=== PATIENT | female | born 1945 | race Caucasian/White ===

== ENCOUNTER → 2018-03-27 08:47 | Outpatient (CLI) | payer MEDICARE, SELFPAY ==
[2018-03-27 09:34] LABS: Basophils # 0.1 K/mm3 (0-0.2); Eosinophils # 0.4 K/mm3 (0.0-0.4); Eosinophils % 5.2 % (0.1-12.0); Hematocrit 49.3 % (37.0-47.0); Hemoglobin 15.2 g/dL (12.2-16.2); Lymphocytes # 2.9 K/mm3 (0.7-4.5); Lymphocytes % 33.8 K/mm3 (10-50); Mean Corpuscular HGB Conc 30.8 g/dL (31.8-35.4); Mean Corpuscular Hemoglobin 29.9 pg (27.0-31.2); Mean Platelet Volume 7.7 fl (7.4-10.4); Monocytes # 0.7 K/mm3 (0.1-1.0); Monocytes % 8.3 % (1.7-9.3); Neutrophils # 4.4 K/mm3 (1.8-7.8); Neutrophils % 51.7 % (37.0-80.0); Platelet Count 237 K/mm3 (142-424); Red Blood Count 5.09 M/mm3 (4.20-5.40); Red Cell Distribution Width 13.5 % (11.5-17.5); White Blood Count 8.5 K/mm3 (4.8-10.8)
[2018-03-27 10:32] LABS: Hemoglobin A1C 5.9 % (0.0-7.0)
[2018-03-27 10:41] LABS: Alanine Aminotransferase 29 U/L (12-78); Albumin Level 3.6 gm/dL (3.4-5.0); Alkaline Phosphatase 74 U/L (46-116); Anion Gap 11.6 mEq/L (5-15); Aspartate Amino Transferase 24 U/L (15-37); Bilirubin,Total 0.5 mg/dL (0.2-1.0); Blood Urea Nitrogen 29 mg/dL (7-18); Calcium 9.5 mg/dL (8.5-10.1); Carbon Dioxide 30 mmol/L (21.0-32.0); Chloride 103 mmol/L (98-107); Chol/HDL Ratio 2.6 (1-3.5); Cholesterol 172 mg/dL (140-200); Creatinine,Serum 1.14 mg/dL (0.55-1.02); Estimated Glomerular Filt Rate 47 ml/min (>60); GFR (African American) 57 ML/MIN (>60); Globulin 3.5 gm/dl (1.3-3.2); Glucose 114 mg/dL (74-106); HDL Cholesterol 67 mg/dL (29-89); LDL Cholesterol 85 mg/dL (0-130); Potassium 4.6 mmoL/L (3.5-5.1); Sodium 140 mmol/L (136-145); Thyroid Stimulating Hormone 1.42 uIU/ml (0.358-3.740); Total Protein,Serum 7.1 gm/dL (6.4-8.2); Triglycerides 100 mg/dL (30-200); VLDL Cholesterol 20 mg/dL (0-40)
== END ==
PROVIDERS: Visit Provider Nurse Practitioner Family
DX: K21.9 Gastro-esophageal reflux disease without esophagitis (principal); R73.9 Hyperglycemia, unspecified; I10 Essential (primary) hypertension
CPT/HCPCS: 36415; 80053; 80061; 83036; 84443; 85025

== ENCOUNTER → 2018-03-31 15:51 | Outpatient (CLI) | payer MEDICARE, SELFPAY ==
--- NOTE | 2018-03-31 15:57 | MM_ITS ---
. MM Dig screening mamm BI w/CAD CAD Screening ORDERING PHYSICIAN : Magaly Mariscal PATIENT AGE: 72 years GENDER: Female HISTORY. Screening mammogram. No new complaints. Previous benign lumpectomy right breast Family history. Noncontributory COMPARISON: Previous mammograms: March 2015, 2016. August 2010 INDICATION: TECHNIQUE: Standard CC and MLO images were obtained. R2 CAD reviewed. FINDINGS: Minimal residual fibroglandular elements bilaterally. . RIGHT BREAST:Right breast appears stable with no new areas of concern. Follow-up in one year LEFT BREAST:Small areas of minor at the lateral left breast is stable since 2014. It not of concern in can be followed. No significant new findings. No dominant mass nor suspicious calcifications of concern IMPRESSION: . Stable bilateral mammogram. Follow-up in one year recommended BI-RADS Category: 2 Benign Finding(s) RECOMMENDED FOLLOW-UP: 1YR - 1 YEAR FOLLOW-UP (A letter has been sent to the patient regarding results of the study.) In
== END ==
PROVIDERS: PCP Internal Medicine Adolescent Medicine; Visit Provider Nurse Practitioner Family
DX: Z12.31 Encounter for screening mammogram for malignant neoplasm of breast (principal)
CPT/HCPCS: 77067

== ENCOUNTER → 2018-09-25 09:41 | Outpatient (CLI) | payer MEDICARE, SELFPAY ==
[2018-09-25 10:19] LABS: Basophils # 0.1 K/mm3 (0-0.2); Eosinophils # 0.2 K/mm3 (0.0-0.4); Eosinophils % 2.4 % (0.1-12.0); Hemoglobin 15.4 g/dL (12.2-16.2); Lymphocytes % 33.2 % (10-50); Mean Corpuscular Hemoglobin 30.4 pg (27.0-31.2); Mean Corpuscular Volume 94.9 fl (81-99); Mean Platelet Volume 7.4 fl (7.4-10.4); Monocytes # 0.6 K/mm3 (0.1-1.0); Neutrophils # 5.1 K/mm3 (1.8-7.8); Neutrophils % 56.4 % (37.0-80.0); Platelet Count 276 K/mm3 (142-424); Red Blood Count 5.06 M/mm3 (4.20-5.40); Red Cell Distribution Width 14.1 % (11.5-17.5)
[2018-09-25 11:31] LABS: Alanine Aminotransferase 30 U/L (12-78); Albumin Level 3.8 gm/dL (3.4-5.0); Alkaline Phosphatase 86 U/L (46-116); Anion Gap 16.7 mEq/L (5-15); Aspartate Amino Transferase 22 U/L (15-37); Bilirubin,Total 0.7 mg/dL (0.2-1.0); Blood Urea Nitrogen 25 mg/dL (7-18); Calcium 9.4 mg/dL (8.5-10.1); Carbon Dioxide 24 mmol/L (21.0-32.0); Chloride 103 mmol/L (98-107); Chol/HDL Ratio 2.5 (1-3.5); Cholesterol 177 mg/dL (140-200); Creatinine,Serum 1.14 mg/dL (0.55-1.02); Estimated Glomerular Filt Rate 47 ml/min (>60); GFR (African American) 57 ML/MIN (>60); Globulin 3.8 gm/dl (1.3-3.2); Glucose 129 mg/dL (74-106); HDL Cholesterol 72 mg/dL (29-89); LDL Cholesterol 79 mg/dL (0-130); Potassium 4.7 mmoL/L (3.5-5.1); Sodium 139 mmol/L (136-145); Thyroid Stimulating Hormone 2.27 uIU/ml (0.358-3.740); Total Protein,Serum 7.6 gm/dL (6.4-8.2); Triglycerides 132 mg/dL (30-200); Uric Acid 5.4 mg/dL (2.6-7.2); VLDL Cholesterol 26 mg/dL (0-40)
== END ==
PROVIDERS: Visit Provider Nurse Practitioner Family
DX: E03.9 Hypothyroidism, unspecified (principal); I48.1 Persistent atrial fibrillation; R73.9 Hyperglycemia, unspecified; I10 Essential (primary) hypertension; M10.9 Gout, unspecified
CPT/HCPCS: 36415; 80053; 80061; 83036; 84443; 84550; 85025

== ENCOUNTER → 2018-09-26 09:33 | Outpatient (CLI) | payer MEDICARE, OTHER, SELFPAY ==
--- NOTE | 2018-09-26 | CA_ITS ---
PROCEDURE: 2-D M-mode and color Doppler study INDICATIONS FOR THE TEST: Chest pain COPD Heart MurmurX Tobacco Smoking Palpitations Fatigue Syncope Edema HypertensionXDiabetes Mellitus Rheumatic Fever SOB KENT ObesityXHyperlipidemia Family History HD Additional History AF NEW ONSET PATIENT INFORMATION HEIGHT: 66 WEIGHT:293 GENDER: Female B/P:160/90 2-D/M-MODE INTERPRETATION: 2-D MEASUREMENTS OBSERVED VALUES IN CMS Right Ventricular Dimension (RVDd) .8 Interventricular Septum (Thickness)(IVsd) 1.1 Left Ventricular Internal Dimensions(LVIDd) 5.8 Left Ventricular Posterior Wall (Thickness)(LVPWd) 1.2 Aortic Root 3.6 Aortic Cusp Separation 1.6 Left Atrial Dimensions (LAD) 3.9 2D 1. Technically difficult study because of the patient's factor and poor acoustic windows, endocardial surfaces are very poorly visualized. Repeat study with Definity contrast is recommended. 2. The left atrium is mildly enlarged, left ventricle is normal size, probably preserved left ventricular systolic function, repeat study with definitely contrast is recommended. 3. The right atrium and right moderately enlarged, contractility of the right ventricle appears to be normal. 4. The aortic valve is minimally thickened and fibrosed. 5. The mitral and tricuspid valvular grossly normal. 6. No significant pericardial effusion noted. 7. The pulmonic valve is poorly visualized. DOPPLER INTERROGATION: Doppler interrogation of the aortic, mitral and tricuspid valvular presence of mild mitral and tricuspid regurgitation, tricuspid regurgitation jet velocity is inadequate for calculation of the right ventricular systolic pressure, diastolic parameters are inconclusive. CONCLUSION: 1. Technically very difficult study because of the patient's factor and poor acoustic windows, endocardial surfaces are very poorly visualized. Repeat study with Definity contrast is recommended. 2. The left atrium is mildly enlarged, left ventricle is normal size, probably preserved left ventricular systolic function. 3. Moderately enlarged right ventricle with normal contractility. 4. Mild mitral and tricuspid regurgitation 5. No significant pericardial effusion noted.
== END ==
PROVIDERS: PCP Internal Medicine Adolescent Medicine; Visit Provider Nurse Practitioner Family
DX: I49.9 Cardiac arrhythmia, unspecified; I48.0 Paroxysmal atrial fibrillation
CPT/HCPCS: 93306

== ENCOUNTER → 2018-10-03 12:47 | Outpatient (CLI) | payer MEDICARE, OTHER, SELFPAY ==
[2018-10-03 14:39] LABS: Anion Gap 14.4 mEq/L (5-15); Blood Urea Nitrogen 22 mg/dL (7-18); Calcium 9.8 mg/dL (8.5-10.1); Carbon Dioxide 27 mmol/L (21.0-32.0); Chloride 101 mmol/L (98-107); Creatinine,Serum 1.08 mg/dL (0.55-1.02); Estimated Glomerular Filt Rate 50 ml/min (>60); GFR (African American) 60 ML/MIN (>60); Glucose 102 mg/dL (74-106); Potassium 4.4 mmoL/L (3.5-5.1); Sodium 138 mmol/L (136-145)
== END ==
PROVIDERS: Physician Assistant; PCP Internal Medicine Adolescent Medicine; Visit Provider Internal Medicine Cardiovascular Disease
DX: I10 Essential (primary) hypertension (principal); R06.09 Other forms of dyspnea
CPT/HCPCS: 36415; 80048; 83880

== ENCOUNTER → 2018-10-09 06:20 | Outpatient (CLI) | payer MEDICARE, OTHER, SELFPAY ==
--- NOTE | 2018-10-09 06:22 | NM_ITS ---
CARDIOLITE SPECT MYOCARDIAL PERFUSION SCAN, REST AND STRESS: EXERCISE STRESS [facility] REVIEW QGS EF AND WALL MOTION EVALUATION: QPS - PERFUSION EVALUATION HISTORY: SOB, Fatigue, Abnormal EKG, HTN DOSE: 10.29 mCi technetium 99m mibi intravenously at rest followed by 30.4 mCi technetium 99m mibi following the intravenous ministration of 0.4 mg of Lexiscan. Resting blood pressure is 120/82. Stress blood pressure 130/80. FINDINGS: Ejection fraction is calculated to be 51%. Stress images reveal decreased activity throughout the anterior wall with no change during rest images. Gated images calculated ejection fraction of 51% the anterior apical wall is abnormal with significant hypokinesis IMPRESSION: Clinical correlation is advised. The scintigraphic evidence suggests breast attenuation however the gated images clearly demonstrate regional wall motion abnormality which is not explained by the breast attenuation. This test is most consistent with significant LAD disease. Reduced ejection fraction with wall motion abnormality. This should be characterized is a high risk abnormal stress test based on anterior wall involvement complimentary by regional wall motion abnormality
--- NOTE | 2018-10-09 07:18 | HMH.ITSHM ---
Current Home Medications as stated by this patient Jessica Mcdermott or billing representative. []RIVAROXABAN POTASSIUM MELOXICAM LISINOPRIL ALLOPURINOL LEVOTHYROXINE FUROSEMIDE FAMOTIDINE BISOPROLOL ASA
== END ==
PROVIDERS: PCP Internal Medicine Adolescent Medicine; Visit Provider Internal Medicine Cardiovascular Disease
DX: E03.9 Hypothyroidism, unspecified (principal); E66.01 Morbid (severe) obesity due to excess calories; G47.33 Obstructive sleep apnea (adult) (pediatric); I10 Essential (primary) hypertension; I48.91 Unspecified atrial fibrillation; R06.09 Other forms of dyspnea; Z68.42 Body mass index [BMI] 45.0-49.9, adult; Z87.898 Personal history of other specified conditions
CPT/HCPCS: 78452; 93017; A9502; J2785

== ENCOUNTER → 2018-10-23 10:10 | Outpatient (CLI) | payer MEDICARE, OTHER, SELFPAY ==
[2018-10-23 11:15] LABS: Anion Gap 14.1 mEq/L (5-15); Blood Urea Nitrogen 29 mg/dL (7-18); Calcium 9.6 mg/dL (8.5-10.1); Carbon Dioxide 28 mmol/L (21.0-32.0); Chloride 101 mmol/L (98-107); Creatinine,Serum 1.58 mg/dL (0.55-1.02); Estimated Glomerular Filt Rate 32 ml/min (>60); GFR (African American) 39 ML/MIN (>60); Glucose 127 mg/dL (74-106); Sodium 138 mmol/L (136-145)
[2018-10-23 11:24] LABS: Potassium 5.1 mmoL/L (3.5-5.1)
== END ==
PROVIDERS: PCP Internal Medicine Adolescent Medicine; Visit Provider Nurse Practitioner Family
DX: I50.82 Biventricular heart failure; I27.20 Pulmonary hypertension, unspecified
CPT/HCPCS: 36415; 80048

== ENCOUNTER → 2018-10-30 09:59 | Outpatient (CLI) | payer MEDICARE, OTHER, SELFPAY ==
[2018-10-30 11:11] LABS: Anion Gap 17.7 mEq/L (5-15); Blood Urea Nitrogen 47 mg/dL (7-18); Calcium 9.6 mg/dL (8.5-10.1); Carbon Dioxide 26 mmol/L (21.0-32.0); Chloride 98 mmol/L (98-107); Creatinine,Serum 2.43 mg/dL (0.55-1.02); Estimated Glomerular Filt Rate 20 ml/min (>60); GFR (African American) 24 ML/MIN (>60); Glucose 134 mg/dL (74-106); Potassium 4.7 mmoL/L (3.5-5.1); Sodium 137 mmol/L (136-145)
== END ==
PROVIDERS: Visit Provider Nurse Practitioner Family
DX: I27.20 Pulmonary hypertension, unspecified (principal); I50.82 Biventricular heart failure; N18.9 Chronic kidney disease, unspecified
CPT/HCPCS: 36415; 80048

== ENCOUNTER → 2018-11-06 11:35 | Outpatient (CLI) | payer MEDICARE, OTHER, SELFPAY ==
[2018-11-06 15:05] LABS: Anion Gap 16.8 mEq/L (5-15); Blood Urea Nitrogen 29 mg/dL (7-18); Calcium 9.5 mg/dL (8.5-10.1); Carbon Dioxide 23 mmol/L (21.0-32.0); Chloride 103 mmol/L (98-107); Creatinine,Serum 1.44 mg/dL (0.55-1.02); Estimated Glomerular Filt Rate 36 ml/min (>60); GFR (African American) 43 ML/MIN (>60); Glucose 129 mg/dL (74-106); Potassium 4.8 mmoL/L (3.5-5.1); Sodium 138 mmol/L (136-145)
== END ==
PROVIDERS: Visit Provider Nurse Practitioner Family
DX: N18.1 Chronic kidney disease, stage 1 (principal); I27.20 Pulmonary hypertension, unspecified; R06.02 Shortness of breath
CPT/HCPCS: 36415; 80048

== ENCOUNTER → 2018-11-14 12:09 | Outpatient (CLI) | payer MEDICARE, OTHER, SELFPAY ==
[2018-11-14 14:41] LABS: Anion Gap 15.7 mEq/L (5-15); Blood Urea Nitrogen 23 mg/dL (7-18); Calcium 9.6 mg/dL (8.5-10.1); Carbon Dioxide 24 mmol/L (21.0-32.0); Chloride 104 mmol/L (98-107); Creatinine,Serum 1.08 mg/dL (0.55-1.02); Estimated Glomerular Filt Rate 50 ml/min (>60); GFR (African American) 60 ML/MIN (>60); Glucose 108 mg/dL (74-106); Potassium 4.7 mmoL/L (3.5-5.1); Sodium 139 mmol/L (136-145)
== END ==
PROVIDERS: Urology; Visit Provider Internal Medicine
DX: I27.20 Pulmonary hypertension, unspecified (principal); N18.1 Chronic kidney disease, stage 1; R06.02 Shortness of breath
CPT/HCPCS: 36415; 80048

== ENCOUNTER → 2018-11-28 11:50 | Outpatient (CLI) | payer MEDICARE, OTHER, SELFPAY ==
[2018-11-28 12:58] LABS: Anion Gap 15.2 mEq/L (5-15); Blood Urea Nitrogen 46 mg/dL (7-18); Carbon Dioxide 27 mmol/L (21.0-32.0); Chloride 100 mmol/L (98-107); Creatinine,Serum 1.93 mg/dL (0.55-1.02); Estimated Glomerular Filt Rate 26 ml/min (>60); GFR (African American) 31 ML/MIN (>60); Glucose 121 mg/dL (74-106); Potassium 5.2 mmoL/L (3.5-5.1); Sodium 137 mmol/L (136-145)
== END ==
PROVIDERS: Urology; Visit Provider Internal Medicine
DX: I51.9 Heart disease, unspecified; R06.02 Shortness of breath; R60.9 Edema, unspecified
CPT/HCPCS: 36415; 80048

== ENCOUNTER → 2018-12-06 12:06 | Outpatient (CLI) | payer MEDICARE, OTHER, SELFPAY ==
[2018-12-06 13:57] LABS: Anion Gap 13.9 mEq/L (5-15); Blood Urea Nitrogen 41 mg/dL (7-18); Calcium 9.6 mg/dL (8.5-10.1); Carbon Dioxide 28 mmol/L (21.0-32.0); Chloride 101 mmol/L (98-107); Creatinine,Serum 1.98 mg/dL (0.55-1.02); Estimated Glomerular Filt Rate 25 ml/min (>60); GFR (African American) 30 ML/MIN (>60); Glucose 134 mg/dL (74-106); Potassium 4.9 mmoL/L (3.5-5.1); Sodium 138 mmol/L (136-145)
== END ==
PROVIDERS: Visit Provider Urology
DX: I51.9 Heart disease, unspecified (principal); R06.02 Shortness of breath; R60.9 Edema, unspecified
CPT/HCPCS: 36415; 80048

== ENCOUNTER → 2018-12-13 14:36 | Outpatient (CLI) | payer MEDICARE, OTHER, SELFPAY ==
[2018-12-13 15:35] LABS: Anion Gap 12.5 mEq/L (5-15); Blood Urea Nitrogen 34 mg/dL (7-18); Calcium 9.3 mg/dL (8.5-10.1); Carbon Dioxide 27 mmol/L (21.0-32.0); Chloride 102 mmol/L (98-107); Estimated Glomerular Filt Rate 23 ml/min (>60); GFR (African American) 28 ML/MIN (>60); Glucose 109 mg/dL (74-106); Potassium 4.5 mmoL/L (3.5-5.1); Sodium 137 mmol/L (136-145)
== END ==
PROVIDERS: Visit Provider Internal Medicine
DX: I27.20 Pulmonary hypertension, unspecified (principal); I48.91 Unspecified atrial fibrillation; I51.89 Other ill-defined heart diseases
CPT/HCPCS: 36415; 80048

== ENCOUNTER → 2018-12-22 12:52 | Outpatient (CLI) | payer MEDICARE, OTHER, SELFPAY ==
[2018-12-22 15:01] LABS: Anion Gap 16.4 mEq/L (5-15); Blood Urea Nitrogen 36 mg/dL (7-18); Calcium 9.5 mg/dL (8.5-10.1); Carbon Dioxide 25 mmol/L (21.0-32.0); Chloride 102 mmol/L (98-107); Creatinine,Serum 1.59 mg/dL (0.55-1.02); Estimated Glomerular Filt Rate 32 ml/min (>60); GFR (African American) 39 ML/MIN (>60); Glucose 158 mg/dL (74-106); Potassium 5.4 mmoL/L (3.5-5.1); Sodium 138 mmol/L (136-145)
== END ==
PROVIDERS: Visit Provider Physician Assistant
DX: I27.20 Pulmonary hypertension, unspecified (principal); I48.91 Unspecified atrial fibrillation; I51.89 Other ill-defined heart diseases
CPT/HCPCS: 36415; 80048

== ENCOUNTER → 2019-01-01 12:31 | Outpatient (CLI) | payer MEDICARE, OTHER, SELFPAY ==
[2019-01-01 13:48] LABS: Anion Gap 16.9 mEq/L (5-15); Blood Urea Nitrogen 28 mg/dL (7-18); Calcium 9.7 mg/dL (8.5-10.1); Carbon Dioxide 25 mmol/L (21.0-32.0); Chloride 101 mmol/L (98-107); Creatinine,Serum 1.62 mg/dL (0.55-1.02); Estimated Glomerular Filt Rate 31 ml/min (>60); GFR (African American) 38 ML/MIN (>60); Glucose 117 mg/dL (74-106); Potassium 4.9 mmoL/L (3.5-5.1); Sodium 138 mmol/L (136-145)
== END ==
PROVIDERS: Visit Provider Internal Medicine
DX: I10 Essential (primary) hypertension (principal); I20.9 Angina pectoris, unspecified; I48.91 Unspecified atrial fibrillation; R53.83 Other fatigue
CPT/HCPCS: 36415; 80048

== ENCOUNTER → 2019-03-23 13:36 | Outpatient (CLI) | payer MEDICARE, OTHER, SELFPAY ==
--- NOTE | 2019-03-23 13:39 | US_ITS ---
US Kidney CLINICAL INDICATION: ITS.REASON: URINARY HESITATION, ELEVATED SERUM CREATININE ORDERING PHYSICIAN: Magaly Mariscal APRN PATIENT AGE: 73 years Comparison: None FINDINGS: The kidneys are of normal size shape and position. No hydronephrosis. There is mild bilateral renal cortical thinning. No renal mass or perinephric fluid collection. IMPRESSION: Mild bilateral renal cortical thinning otherwise negative bilateral renal ultrasound
--- NOTE | 2019-03-23 14:35 | CA_ITS ---
PROCEDURE: 2-D M-mode and color Doppler study INDICATIONS FOR THE TEST: Chest pain COPD Heart Murmur+ Tobacco Smoking Palpitations Fatigue+ Syncope Edema+ Hypertension+Diabetes Mellitus Rheumatic Fever SOB+KENT Obesity+Hyperlipidemia Family History HD Additional History DD, GERD, CATH PATIENT INFORMATION HEIGHT: 66 WEIGHT:272 GENDER: Female B/P:109/51 2-D/M-MODE INTERPRETATION: 2-D MEASUREMENTS OBSERVED VALUES IN CMS Right Ventricular Dimension (RVDd) 2.8 Interventricular Septum (Thickness)(IVsd) 1.5 Left Ventricular Internal Dimensions(LVIDd) 5.0 Left Ventricular Posterior Wall (Thickness)(LVPWd) 0.8 Aortic Root 3.5 Aortic Cusp Separation 2.0 Left Atrial Dimensions (LAD) 4.6 2D 1. Left atrium is moderately enlarged, left ventricle is normal size, mild concentric left ventricular hypertrophy, visually estimated ejection fraction 55% with no regional wall motion abnormality. 2. The right atrium and right ventricle are mildly enlarged with normal contractility. 3. The aortic valve is thickened and calcified leaflet continue to display mobility. 4. The mitral and tricuspid valve leaflets are minimally thickened. 5. The pulmonic valve is poorly visualized. 6. No significant pericardial effusion noted. DOPPLER INTERROGATION: Doppler interrogation of the aortic, mitral and tricuspid valvular presence of trace aortic, mild mitral and tricuspid regurgitation, tricuspid regurgitation jet velocity is inadequate for calculation of the right ventricular systolic pressure, diastolic parameters are inconclusive. CONCLUSION: 1. Moderately enlarged left atrium, normal left ventricular size, mild concentric left ventricular hypertrophy, visually estimated ejection fraction of 55% with no regional wall motion abnormality, diastolic parameters are inconclusive. 2. Mildly enlarged right ventricle with normal contractility. 3. Trace aortic, mild mitral and tricuspid regurgitation 4. No significant pericardial effusion noted.
== END ==
PROVIDERS: PCP Nurse Practitioner Family; Visit Provider Nurse Practitioner Family
DX: R06.09 Other forms of dyspnea (principal); R39.11 Hesitancy of micturition
CPT/HCPCS: 76770; 93306

== ENCOUNTER → 2019-06-28 14:51 | Outpatient (POV) | payer MEDICARE, OTHER, SELFPAY | PROVIDERS: Visit Provider Internal Medicine Nephrology | DX: Z00.00 Encounter for general adult medical examination without abnormal findings (principal) ==

== ENCOUNTER → 2019-07-16 15:00 | Outpatient (CLI) | payer MEDICARE, OTHER, SELFPAY ==
--- NOTE | 2019-07-16 15:05 | XR_ITS ---
PROCEDURE: XR FOOT LT MIN 3V CLINICAL INDICATION: GOUTY ARTHRITIS, BILAT FOOT PAIN COMPARISON: No exams were available for comparison FINDINGS: No fracture or dislocation. No lytic or blastic change. There is normal mineralization. Mild degenerative changes in the midfoot at the navicular cuneiform and metatarsal tarsal junction posteriorly. Osteoarthritic changes are present at the ankle as well. Other findings:No bony erosive process. No soft tissue calcification. IMPRESSION: Mild degenerative changes of the foot Dictated by: Ricci Bess MD 07/16/2019 16:38 Electronically signed by Ricci Bess MD in [place] 07/16/2019 16:40
--- NOTE | 2019-07-16 15:05 | XR_ITS ---
PROCEDURE: XR FOOT RT MIN 3V CLINICAL INDICATION: GOUTY ARTHRITIS, BILAT FOOT PAIN COMPARISON: No exams were available for comparison FINDINGS: No fracture or dislocation. No lytic or blastic change. There is normal mineralization. There are mild osteoarthritic changes at the calcaneocuboid region and the navicular cuneiform junction Other findings:No soft tissue calcifications evident no gouty tophi parent IMPRESSION: Mild osteoarthritis Dictated by: Ricci Bess MD 07/16/2019 16:39 Electronically signed by Ricci Bess MD in [place] 07/16/2019 16:39
== END ==
PROVIDERS: PCP Nurse Practitioner Family; Visit Provider Nurse Practitioner Family
DX: M10.9 Gout, unspecified (principal); M79.672 Pain in left foot; M79.671 Pain in right foot
CPT/HCPCS: 73630

== ENCOUNTER → 2020-11-25 11:15 | Outpatient (CLI) | payer MEDICARE, OTHER, SELFPAY ==
--- NOTE | 2020-11-25 11:20 | XR_ITS ---
PROCEDURE: XR CHEST 2V CLINICAL HISTORY: dyspnea/recent covid-19 Oct COMPARISON: CR CXR1 CHEST-PORTABLE from 04/02/2016 FINDINGS: There is mild prominence of the cardiomediastinal silhouette. Subtle patchy ground-glass areas of attenuation noted in the right upper and right lower lobe and left lung base suspicious for patchy infiltrate seen with Covid19. Degenerative changes thoracic spine. IMPRESSION: Suspect mild bilateral pneumonia Dictated by: Ricci Bess MD 11/25/2020 13:05 Ricci Bess MD in [place] 11/25/2020 13:05
== END ==
PROVIDERS: PCP Internal Medicine Adolescent Medicine; Visit Provider Internal Medicine
DX: I10 Essential (primary) hypertension (principal); I25.10 Atherosclerotic heart disease of native coronary artery without angina pectoris; I27.20 Pulmonary hypertension, unspecified; R06.02 Shortness of breath; R09.89 Other specified symptoms and signs involving the circulatory and respiratory systems; U07.1 COVID-19; I48.19 Other persistent atrial fibrillation
CPT/HCPCS: 71046

== ENCOUNTER → 2021-06-01 09:53 | Outpatient (CLI) | payer MEDICARE, SELFPAY ==
--- NOTE | 2021-06-01 09:55 | CA_ITS ---
APPROVED REPORT EXAM: Comprehensive 2D, Doppler, and color-flow Echocardiogram Sports Director: Grisel Zhou RVT Ht: 5 ft 6 in Wt: 259lbs BSA: 2.23 BP: 147/89 mmHg Indications: SOA,CAD,DD,A-FIB,GERD,OBESITY,HTN,EDEMA 2D Dimensions LVOT 2.76 cm (M/F) 1.5-2.5 LA Volume 85.90 mL LA Volume Index 38.52 mL/m2 (M/F) 16-34 M-Mode Dimensions RVDd 1.92 cm (0.9-2.6) LA Diam 4.11 cm (1.9-4.0) LVDd 5.40 cm (3.5-5.7) Ao Diam 3.07 cm (2.0-3.7) LVDs 3.72 cm (3.5-5.7) IVSd 0.88 cm (0.6-1.1) PWd 0.60 cm (0.6-1.1) EF (Teich) 58.30% FS 31.10% EDV (Teich) 141.30 mL TAPSE 1.15 (<1.7) ESV (Teich) 58.90 mL Aortic Valve AI PHT 1157.00 ms AO Peak GR. 4.00 mmHg Pulmonary Valve PV Peak Velocity 51.00 (50-150 cm/s) Tricuspid Valve TR P. Velocity 219.00 cm/s RAP Estimate 10.00 mmHg RVSP 29.30 mmHg Left Ventricle Left atrium is mildly enlarged, left ventricle is normal size, mild concentric left ventricular hypertrophy, visually estimated ejection fraction 55% with no regional wall motion abnormality, diastolic parameters are inconclusive. Right Ventricle Right atrium and right ventricle mildly enlarged with normal contractility. Aortic Valve Aortic valve is minimally thickened and fibrosed, there is no aortic stenosis, there is mild aortic insufficiency. Mitral Valve Mitral valve grossly normal, there is mild mitral regurgitation. Tricuspid Valve Tricuspid valve grossly normal, there is mild tricuspid regurgitation, tricuspid regurgitation jet velocity is inadequate for calculation of the right ventricular systolic pressure. Pulmonic Valve Pulmonic valve is poorly visualized. Great Vessels Aortic root is normal size. Pericardium No significant pericardial effusion noted. Conclusion 1. Biatrial enlargement, normal left ventricular size, mild concentric left ventricular hypertrophy, visually estimated ejection fraction 55% with no regional wall motion abnormality, diastolic parameters are inconclusive. 2. Mildly enlarged right ventricle with normal contractility. 3. Mild aortic, mild mitral and tricuspid regurgitation. 4. No significant pericardial effusion noted. Electronically signed by : Daniel Burgos MD 06/01/2021 21:25:41
== END ==
PROVIDERS: PCP Internal Medicine Adolescent Medicine; Visit Provider Nurse Practitioner Family
DX: E66.01 Morbid (severe) obesity due to excess calories (principal); I10 Essential (primary) hypertension; I25.10 Atherosclerotic heart disease of native coronary artery without angina pectoris; I27.20 Pulmonary hypertension, unspecified; R06.02 Shortness of breath; I48.19 Other persistent atrial fibrillation; Z68.41 Body mass index [BMI] 40.0-44.9, adult
CPT/HCPCS: 93306

== ENCOUNTER → 2021-12-01 10:53 | Outpatient (CLI) | payer MEDICARE, SELFPAY ==
[2021-12-01 12:09] LABS: Basophils # 0.1 K/mm3 (0-0.2); Basophils % 1.2 % (0.1-2.0); Eosinophils # 0.5 K/mm3 (0.0-0.4); Eosinophils % 4.8 % (0.1-12.0); Hematocrit 47.8 % (37.0-47.0); Hemoglobin 15.1 g/dL (12.2-16.2); Lymphocytes # 3.9 K/mm3 (0.7-4.5); Lymphocytes % 41.7 % (10-50); Mean Corpuscular HGB Conc 31.6 g/dL (31.8-35.4); Mean Corpuscular Hemoglobin 31.4 pg (27.0-31.2); Mean Corpuscular Volume 99.3 fl (81-99); Mean Platelet Volume 8.5 fl (7.4-10.4); Monocytes # 0.7 K/mm3 (0.1-1.0); Monocytes % 7.5 % (1.7-9.3); Neutrophils # 4.2 K/mm3 (1.8-7.8); Neutrophils % 44.7 % (37.0-80.0); Platelet Count 265 K/mm3 (142-424); Red Blood Count 4.82 M/mm3 (4.20-5.40); Red Cell Distribution Width 14.5 % (11.5-17.5); White Blood Count 9.4 K/mm3 (4.8-10.8)
[2021-12-01 12:35] LABS: Alanine Aminotransferase 22 U/L (12-78); Albumin Level 4.1 g/dl (3.5-5.0); Albumin/Globulin Ratio 1.6 (1.1-1.8); Alkaline Phosphatase 75 U/L (38-126); Anion Gap 10.5 mEq/L (5-15); Aspartate Amino Transferase 32 U/L (14-36); Bilirubin,Total 0.8 mg/dl (0.2-1.3); Blood Urea Nitrogen 25 mg/dl (7-17); Calcium 9.9 mg/dl (8.4-10.2); Carbon Dioxide 29 mmol/L (22.0-30.0); Chloride 104 mmol/L (98-107); Chol/HDL Ratio 3.2 (1-3.5); Cholesterol 185 mg/dl (140-200); Estimated Glomerular Filt Rate 54 ml/min (>60); GFR (African American) 65 ML/MIN (>60); Globulin 2.6 g/dL (1.3-3.2); Glucose 105 mg/dl (74-100); HDL Cholesterol 57 mg/dl (40-60); Potassium 4.5 mmoL/L (3.5-5.1); Sodium 139 mmol/L (136-145); Total Protein,Serum 6.7 g/dl (6.3-8.2); Triglycerides 159 mg/dl (30-150); Uric Acid 4.9 mg/dl (2.5-6.2); VLDL Cholesterol 32 mg/dL (0-40)
[2021-12-01 12:36] LABS: Alanine Aminotransferase 22 U/L (12-78); Albumin Level 4.1 g/dl (3.5-5.0); Alkaline Phosphatase 75 U/L (38-126); Aspartate Amino Transferase 31 U/L (14-36); Bilirubin,Direct 0.2 mg/dl (0.0-0.4); Bilirubin,Indirect 0.6 mg/dL (0.0-0.9); Bilirubin,Total 0.8 mg/dl (0.2-1.3); Bilirubin,Unconjugated 0.6 mg/dL (0.0-1.1); Total Protein,Serum 6.7 g/dl (6.3-8.2)
[2021-12-01 12:46] LABS: Direct LDL Cholesterol 78.92 mg/dL (100-129)
[2021-12-01 12:52] LABS: 25-OH Vitamin D, Total 49.9 ng/mL (30-100)
[2021-12-01 13:06] LABS: Thyroid Stimulating Hormone 3.06 uIU/mL (0.465-4.68)
== END ==
PROVIDERS: Urology; PCP Internal Medicine Adolescent Medicine; Visit Provider Nurse Practitioner Family
DX: I10 Essential (primary) hypertension (principal); I25.10 Atherosclerotic heart disease of native coronary artery without angina pectoris; I27.20 Pulmonary hypertension, unspecified; I48.20 Chronic atrial fibrillation, unspecified; R06.02 Shortness of breath; E66.9 Obesity, unspecified; Z68.41 Body mass index [BMI] 40.0-44.9, adult
CPT/HCPCS: 36415; 80053; 80061; 80076; 82306; 84443; 84550; 85025

== ENCOUNTER → 2023-03-16 10:07 | Outpatient (CLI) | payer MEDICARE, SELFPAY ==
--- NOTE | 2023-03-16 10:15 | XR_ITS ---
FINAL REPORT CLINICAL HISTORY: left knee pain FINDINGS: Left knee Three views were obtained. There is no acute fracture or dislocation. There are severe degenerative changes. There is severe joint space narrowing. There is lateral subluxation of the tibia in relation to the distal femur. IMPRESSION: Severe degenerative changes. Reviewed, Interpreted and Dictated by Cody Raygoza III, MD Transcribed by Dana Acevedo Authenticated and [facility]
--- NOTE | 2023-03-16 10:15 | XR_ITS ---
FINAL REPORT CLINICAL HISTORY: rt knee pain FINDINGS: Right knee Three views were obtained. There is no acute fracture or dislocation. There are moderate and severe degenerative changes. There is severe lateral compartment narrowing. Note is made of valgus angulation of the knee. IMPRESSION: Moderate to severe degenerative changes. Reviewed, Interpreted and Dictated by Cody Raygoza III, MD Transcribed by Dana Acevedo Authenticated and [facility]
== END ==
PROVIDERS: PCP Internal Medicine Adolescent Medicine; Visit Provider Orthopaedic Surgery
DX: M25.562 Pain in left knee; M25.561 Pain in right knee
CPT/HCPCS: 73562